=== PATIENT | male | born 1935 | race Caucasian/White ===

== ENCOUNTER 2019-01-05 11:16 | Outpatient (CLI) | payer OTHER | END 2019-01-05 11:17 | disposition home or self-care (01) | LOC: CONVCARE 11:16 ==

== ENCOUNTER 2019-02-24 08:44 | Observation (INO) | payer OTHER ==
[2019-02-24] MEDS ORDERED: MORPHINE SULFATE 10 MG/ML SOL IV PRN (08:45)
[2019-02-24] MEDS ORDERED: ASPIRIN 81 MG CHEWABLE CTB PO STA (08:45)
[2019-02-24] MEDS ORDERED: NITROGLYCERIN 0.4 MG TAB SL PRN ×2 (08:45→19:08)
[2019-02-24] MEDS ORDERED: ASPIRIN 81 MG CHEWABLE CTB ONE (08:50)
[2019-02-24] MEDS ORDERED: FUROSEMIDE 100 MG SOL ONE (08:50)
[2019-02-24 09:03] LABS: BASOPHILS % (AUTO) 0 % (0-3); EOSINOPHILS % (AUTO) 1 % (0-9); HEMATOCRIT 34 % (39-53); HEMOGLOBIN 10.8 gm/dl (13.5-17.7); LYMPHOCYTES % (AUTO) 5.2 % (10-50); MEAN CORPUSCULAR HEMOGLOBIN 31.3 pg (27.0-32.0); MEAN CORPUSCULAR HGB CONC 31.4 gm/dl (32.0-36.0); MONOCYTES % (AUTO) 6.5 % (0-12); NEUTROPHILS % (AUTO) 87.2 % (37-80)
[2019-02-24 09:07] LABS: MEAN CORPUSCULAR VOLUME 100 fL (80-100)
[2019-02-24 09:16] LABS: INR 2.94 (0.87-1.13)
[2019-02-24 09:21] LABS: BLOOD UREA NITROGEN 32 mg/dl (7-18); CALCIUM 8.5 mg/dl (8.5-10.1); CARBON DIOXIDE 29.4 mEq/L (21-32); CHLORIDE 102 mMol/L (98-107); CREATINE KINASE 60 U/L (39-308); CREATININE 1.85 mg/dl (0.80-1.30); GLUCOSE 113 mg/dl (74-106); TROP I < 0.017 ng/ml (0.000-0.056)
[2019-02-24] MEDS ORDERED: FUROSEMIDE 40 MG SOL IV ONE ×2 (09:41→10:50)
[2019-02-24] MEDS: SODIUM CHLORIDE 0.9% FLUSH 10 ML SOL IV PRN (09:47)
[2019-02-24] MEDS ORDERED: METOPROLOL TARTRATE 5 MG/5 ML SOL IV ONE ×2 (09:59→10:00)
[2019-02-24] MEDS ORDERED: DILTIAZEM 5 MG/ML SOL IV ONE ×3 (10:16→23:54)
[2019-02-24] MEDS ORDERED: DILTIAZEM 5 MG/ML 125 MG in SODIUM CHLORIDE 0.9% 100 ML 100 ML IV SCH (10:30)
[2019-02-24] MEDS: DILTIAZEM 5 MG/ML 125 MG in SODIUM CHLORIDE 0.9% 100 ML 100 ML IV SCH (14:05)
[2019-02-24 14:47] LABS: APPEARANCE,URINE Clear; BILIRUBIN,URINE NEGATIVE (NEGATIVE); COLOR,URINE Yellow; GLUCOSE, URINE (UA) NEGATIVE (NEGATIVE); KETONES,URINE NEGATIVE (NEGATIVE); LEUKOCYTE ESTERASE ,URINE NEGATIVE (NEGATIVE); NITRATE,URINE NEGATIVE (NEGATIVE); OCCULT BLOOD,URINE TRACE INTACT (NEG-TRACE); UROBILINOGEN,URINE 0.2 (0.2-1.0 EU)
[2019-02-24 14:59] LABS: BACTERIA NEGATIVE (< 1+); CRYSTALS NEGATIVE (0-3 AVE/HPF); EPITHELIAL CELLS NEGATIVE (SQUAMOUS); RBC,URINE 0-1 (0-3AV/HPF); WBC,URINE NEGATIVE (0-5AV/HPF)
[2019-02-24] MEDS ORDERED: LORAZEPAM 2 MG/ML SOL ONE (15:21)
[2019-02-24] MEDS ORDERED: LORAZEPAM 2 MG/ML SOL IV ONE (16:00)
[2019-02-24] MEDS ORDERED: LOPERAMIDE HYDROCHLORIDE 2 MG CAP PO PRN (19:08)
[2019-02-24] MEDS ORDERED: ALLOPURINOL 100 MG TAB PO SCH (19:15)
[2019-02-24] MEDS ORDERED: ALBUTEROL HFA 60 PUFF/INHALER INH PRN (20:30)
[2019-02-24] MEDS ORDERED: WARFARIN SODIUM 3 MG TAB PO SCH (21:20)
[2019-02-24] MEDS ORDERED: HYDRALAZINE HYDROCHLORIDE 10 MG TAB ONE (21:32)
[2019-02-24] MEDS: SERTRALINE HYDROCHLORIDE 50 MG TAB PO SCH (21:34)
[2019-02-24] MEDS: POTASSIUM CHLORIDE 10 MEQ TER PO SCH (21:34)
[2019-02-24] MEDS: ACETAMINOPHEN 325 MG PO SCH (21:34)
[2019-02-24] MEDS: HYDRALAZINE HCL 25 MG TAB PO SCH (21:35)
[2019-02-24] MEDS ORDERED: SODIUM CHLORIDE 0.9% 100 ML 100 ML IV ONE (23:54)
[2019-02-25] MEDS: DILTIAZEM 5 MG/ML 125 MG in SODIUM CHLORIDE 0.9% 100 ML 100 ML IV SCH (00:28)
[2019-02-25] MEDS: SODIUM CHLORIDE 0.9% FLUSH 10 ML SOL IV PRN ×3 (03:45→20:29)
[2019-02-25 07:21] LABS: BASOPHILS % (AUTO) 1 % (0-3); EOSINOPHILS % (AUTO) 0 % (0-9); HEMATOCRIT 33 % (39-53); LYMPHOCYTES % (AUTO) 7.6 % (10-50); MEAN CORPUSCULAR HEMOGLOBIN 30.5 pg (27.0-32.0); MEAN CORPUSCULAR HGB CONC 30.4 gm/dl (32.0-36.0); MONOCYTES % (AUTO) 8.3 % (0-12); NEUTROPHILS % (AUTO) 83.3 % (37-80)
[2019-02-25 07:22] LABS: MEAN CORPUSCULAR VOLUME 100 fL (80-100)
[2019-02-25 07:23] LABS: CALCIUM 8.3 mg/dl (8.5-10.1); CARBON DIOXIDE 28.7 mEq/L (21-32); CREATININE 1.7 mg/dl (0.80-1.30)
[2019-02-25 07:36] LABS: INR 1.83 (0.87-1.13)
[2019-02-25] MEDS ORDERED: DILTIAZEM ER 120 MG C24 PO SCH (07:45)
[2019-02-25] MEDS: POTASSIUM CHLORIDE 10 MEQ TER PO SCH ×2 (08:27→20:19)
[2019-02-25] MEDS: DILTIAZEM ER 120 MG C24 PO SCH (08:27)
[2019-02-25] MEDS: FUROSEMIDE 80 MG TAB PO SCH (08:28)
[2019-02-25] MEDS: ACETAMINOPHEN 325 MG PO SCH ×2 (08:28→20:20)
[2019-02-25] MEDS: METOPROLOL TARTRATE 25 MG TAB PO SCH ×2 (08:29→20:23)
[2019-02-25] MEDS ORDERED: ATORVASTATIN CALCIUM 40 MG TAB PO SCH (09:00)
[2019-02-25] MEDS ORDERED: OMEPRAZOLE 20 MG CAPSULE PO SCH (09:00)
[2019-02-25] MEDS ORDERED: DONEPEZIL 10 MG TAB PO SCH (09:00)
[2019-02-25] MEDS ORDERED: METOPROLOL TARTRATE 25 MG TAB PO SCH (09:00)
[2019-02-25] MEDS: ATORVASTATIN 10 MG TAB PO SCH (09:33)
[2019-02-25] MEDS: HYDRALAZINE HYDROCHLORIDE 10 MG TAB PO SCH ×2 (09:35→20:24)
[2019-02-25] MEDS: PANTOPRAZOLE SODIUM 40 MG ECT PO SCH (09:37)
[2019-02-25] MEDS: DONEPEZIL 5 MG 5 MG TAB PO SCH (09:45)
[2019-02-25] MEDS: HYDRALAZINE HCL 25 MG TAB PO SCH (13:34)
[2019-02-25] MEDS ORDERED: FUROSEMIDE 20mg SOL IV ONE (13:45)
[2019-02-25] MEDS: FLUTICASONE PROPIONATE SPR NAS SCH (14:26)
[2019-02-25] MEDS: IRON POLYSACCHARIDE COMPLEX 150 MG PO SCH (14:26)
[2019-02-25] MEDS ORDERED: WARFARIN SODIUM 2.5 MG TAB PO ONE (18:00)
[2019-02-25] MEDS ORDERED: WARFARIN SODIUM 2 MG TAB PO ONE (18:00)
[2019-02-25] MEDS ORDERED: WARFARIN SODIUM 3 MG TAB PO SCH (20:00)
[2019-02-25] MEDS: SERTRALINE HYDROCHLORIDE 50 MG TAB PO SCH (20:21)
[2019-02-25 20:46] VITALS: TEMP 98
[2019-02-26 07:15] LABS: CALCIUM 8.6 mg/dl (8.5-10.1); CARBON DIOXIDE 28.9 mEq/L (21-32); CREATININE 1.66 mg/dl (0.80-1.30)
[2019-02-26 07:29] LABS: BASOPHILS % (AUTO) 1 % (0-3); EOSINOPHILS % (AUTO) 1 % (0-9); HEMATOCRIT 31 % (39-53); HEMOGLOBIN 9.4 gm/dl (13.5-17.7); LYMPHOCYTES % (AUTO) 7.7 % (10-50); MEAN CORPUSCULAR HEMOGLOBIN 30.6 pg (27.0-32.0); MEAN CORPUSCULAR HGB CONC 30.8 gm/dl (32.0-36.0); MONOCYTES % (AUTO) 9.4 % (0-12); NEUTROPHILS % (AUTO) 80.8 % (37-80)
[2019-02-26 07:31] LABS: INR 1.99 (0.87-1.13); MEAN CORPUSCULAR VOLUME 100 fL (80-100)
[2019-02-26] MEDS: IRON POLYSACCHARIDE COMPLEX 150 MG PO SCH (08:45)
[2019-02-26] MEDS: ACETAMINOPHEN 325 MG PO SCH (08:46)
[2019-02-26] MEDS: FLUTICASONE PROPIONATE SPR NAS SCH (08:47)
[2019-02-26] MEDS: ATORVASTATIN 10 MG TAB PO SCH (08:47)
[2019-02-26] MEDS: POTASSIUM CHLORIDE 10 MEQ TER PO SCH ×2 (08:47→14:04)
[2019-02-26] MEDS: DILTIAZEM ER 120 MG C24 PO SCH (08:47)
[2019-02-26] MEDS: FUROSEMIDE 80 MG TAB PO SCH (08:48)
[2019-02-26] MEDS: METOPROLOL TARTRATE 25 MG TAB PO SCH (08:48)
[2019-02-26] MEDS: DONEPEZIL 5 MG 5 MG TAB PO SCH (08:48)
[2019-02-26] MEDS: PANTOPRAZOLE SODIUM 40 MG ECT PO SCH (08:49)
[2019-02-26] MEDS: HYDRALAZINE HYDROCHLORIDE 10 MG TAB PO SCH (08:49)
[2019-02-26 16:01] VITALS: BP 147/71; PULSE 71
[2019-02-26 17:26] VITALS: RESP 18
[2019-02-26] MEDS ORDERED: WARFARIN SODIUM 3 MG TAB PO SCH (18:00)
[2019-02-26 18:02] VITALS: O2SAT 92
[2019-02-27] MEDS ORDERED: METOLAZONE 2.5 MG TAB PO SCH (07:00)
== END 2019-02-26 18:23 | disposition home or self-care (01) | DRG 309 ==
LOC: ED 08:44 → UNDOADMIN 11:09 → ACUTE CARE 11:09 → UNDOADMIN 11:25
PROVIDERS: ADMIT Student in an Organized Health Care Education/Training Program; ATTEND Student in an Organized Health Care Education/Training Program
DX: I48.2 Chronic atrial fibrillation (principal); N17.9 Acute kidney failure, unspecified; I50.9 Heart failure, unspecified; N18.9 Chronic kidney disease, unspecified; D64.9 Anemia, unspecified; Z79.01 Long term (current) use of anticoagulants; R06.02 Shortness of breath; R63.5 Abnormal weight gain; R60.0 Localized edema; R07.89 Other chest pain
CPT/HCPCS: 36415; 71045; 80048; 81001; 82550; 83880; 84484; 85025; 85610; 85730; 93005; 93012; 94762; 96374; 96375; 99285; 99291; J1940; J2060; A9270-GY; J3490